=== PATIENT | male | born 1975 | race Caucasian/White ===

== ENCOUNTER 2018-01-26 10:33 | Emergency (ER) | payer OTHER ==
[2018-01-26 10:59] VITALS: RESP 18
--- NOTE | 2018-01-26 11:27 | ED ---
General Adult HPI - General Chief complaint: Extremity Injury, Upper Stated complaint: left arm injury Time Seen by Provider: 01/26/18 11:10 Source: patient, RN notes reviewed Mode of arrival: ambulatory Limitations: no limitations - History of Present Illness Initial comments: Patient is a 42-year-old male presented to the emergency room today with a chief complaint of pain to the left wrist. He does admit that week ago he had an injury when he was taking a whole the gas on her. States he caught a root and twisted him around. Patient states that his total expressive the left wrist. Patient states that he has experienced some numbness tingling sensation down the left arm 2. He states that he does have some tenderness when he rotates his neck to the right. Feels there is a knot in his neck. He denies any other complaints or symptoms. Patient admits that he had x-rays a week ago of the wrist that were negative. Patient denies any recent fever, chills, shortness of breath, chest pain, back pain, abdominal pain, nausea or vomiting, numbness or tingling, dysuria or hematuria, constipation or diarrhea, headaches or visual changes, or any other complaints. - Related Data Home Medications Medication Instructions Recorded Confirmed No Known Home Medications [No 01/26/18 01/26/18 Known Home Medications] Allergies Allergy/AdvReac Type Severity Reaction Status Date / Time latex Allergy Rash/Hives Verified 01/26/18 11:11 Review of Systems ROS Statement: Those systems with pertinent positive or pertinent negative responses have been documented in the HPI. ROS Other: All systems not noted in ROS Statement are negative. Past Medical History Past Medical History: No Reported History History of Any Multi-Drug Resistant Organisms: None Reported Past Surgical History: No Surgical Hx Reported Past Psychological History: No Psychological Hx Reported Smoking Status: Current every day smoker Past Alcohol Use History: None Reported Past Drug Use History: None Reported General Exam - General Exam Comments Initial Comments: General: The patient is awake and alert, in no distress, and does not appear acutely ill. Neck: The neck is supple, there is no tenderness or JVD. Cardiovascular: There is a regular rate and rhythm. No murmur, rub or gallop is appreciated. Respiratory: Lungs are clear to auscultation, respirations are non-labored, breath sounds are equal. No wheezes, stridor, rales, or rhonchi. Musculoskeletal: Patient has normal appearance of the left arm with no obvious deformity. Normal appearance cervical, thoracic, lumbar spine. No step-off deformity. No tenderness midline in the cervical spine. Patient does have some tenderness of the distal ulna down into the left wrist. No tenderness down into the digits of the left hand. Radial pulse 2+. Strength 4/5 due to pain. Neurological: A&O x 3. CN II-XII intact, There are no obvious motor or sensory deficits. Coordination appears grossly intact. Speech is normal. Skin: Skin is warm and dry and no rashes or lesions are noted. Psychiatric: Normal mood and affect. Limitations: no limitations Course Vital Signs 01/26/18 10:56 Temperature 98.2 F Pulse Rate 77 Respiratory 18 Rate Blood Pressure 114/80 O2 Sat by Pulse 98 Oximetry Medical Decision Making - Medical Decision Making X-rays cervical spine negative. X-ray of the left wrist does reveal almost styloid fracture. Patient has been splinted in a short arm volar OCL splint. Neurovascular rechecked and intact. He is advised follow-up with [facility] over the next 2 days. Advised return for any other concerns. Disposition Clinical Impression: Wrist fracture, left Disposition: HOME SELF-CARE Condition: Good Additional Instructions: Please follow-up the orthopedic doctor over the next 2-5 days. Please see splinted place and continue to ice elevate the affected area. Please use Tylenol/Motrin for pain as needed. Is patient prescribed a controlled substance at d/c from ED?: No Referrals: Misael Ham MD [Primary Care Provider] - 1-2 days Quique Crocker MD [STAFF PHYSICIAN] - 1-2 days Time of Disposition: 12:42
--- NOTE | 2018-01-26 11:46 | XR ---
Limited cervical spine HISTORY: Trauma and pain 3 views of the cervical spine Cervical vertebral bodies show preserved height, near anatomic alignment, and normal bone mineralizat ion. There is spondylosis with some loss of disc height present at C4-5. Prevertebral soft tissues ar e normal. IMPRESSION: No acute fracture or subluxation.
--- NOTE | 2018-01-26 11:49 | XR ---
Left wrist HISTORY: Trauma and pain 4 views of the left wrist Lucency present within the ulnar styloid may represent a nondisplaced fracture, correlate for point t enderness. No dislocation. Bone mineralization, joint spaces and alignment are otherwise maintained. IMPRESSION: Nondisplaced ulnar styloid fracture is suspected.
[2018-01-26 13:19] VITALS: BP 112/76; PULSE 70; TEMP 97.2
== END 2018-01-26 13:19 | disposition home or self-care (01) ==
LOC: EC 10:33
DX: S62.102A Fracture of unspecified carpal bone, left wrist, initial encounter for closed fracture (principal); M54.2 Cervicalgia; F17.200 Nicotine dependence, unspecified, uncomplicated; Z91.040 Latex allergy status; X50.1XXA Overexertion from prolonged static or awkward postures, initial encounter; Y93.89 Activity, other specified
CPT/HCPCS: 29125; 72040; 99283

== ENCOUNTER → 2019-09-16 | Outpatient (CLI) | payer OTHER ==
--- NOTE | 2019-09-16 11:16 | XR ---
EXAMINATION TYPE: XR elbow complete RT DATE OF EXAM: 09/16/2019 CLINICAL HISTORY: Pain after injury 2 days ago. TECHNIQUE: Frontal, lateral and oblique images of the right elbow are obtained. COMPARISON: None FINDINGS: There is no acute fracture/dislocation evident in the right elbow. No abnormal fat pad si gns are seen. The overlying soft tissue appears unremarkable. IMPRESSION: There is no acute fracture or dislocation in the right elbow.
== END | disposition home or self-care (01) ==
LOC: RADXRMAIN 10:52
PROVIDERS: ATTEND Emergency Medicine
DX: S50.01XA Contusion of right elbow, initial encounter (principal)